=== PATIENT | female | born 2000 | race Caucasian/White ===

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

== ENCOUNTER 2018-07-14 22:19 | Emergency (ER) | payer BC ==
[2018-07-14] MEDS ORDERED: hydrOXYzine HCL TAB* 50 MG PO ONE (23:19)
--- NOTE | 2018-07-14 23:22 | ED ---
Allergic Reaction/Systemic - HPI Summary HPI Summary: 17 y/o female presents to the ED c/o diffuse pruritis starting yesterday. Benadryl no relief of pruritis. Pt is pruritic from chest down to feet diffusely. Pt contracted Coxsackievirus in May 2018 - reports similar symptoms now but diffusely. Pt also c/o sore throat, nasal congestion. Denies other PMHx. Pt is on control. - History of Current Complaint Chief Complaint: EDGeneral Hx Obtained From: Patient Hx Last Menstrual Period: 05/18/17 Timing: Constant Pain Intensity: 0 Pain Scale Used: 0-10 Numeric Location: Diffuse Aggravating Factor(s): Nothing Alleviating Factor(s): Nothing Associated Signs And Symptoms: Positive: Other: - pruritus diffusely - Allergies/Home Medications Allergies/Adverse Reactions: Allergies Allergy/AdvReac Type Severity Reaction Status Date / Time No Known Allergies Allergy Verified 05/18/17 20:27 PMH/Surg Hx/FS Hx/Imm Hx Previously Healthy: No Endocrine/Hematology History: Denies: Hx Diabetes Cardiovascular History: Denies: Hx Congestive Heart Failure Infectious Disease History: No Infectious Disease History: Denies: Traveled Outside the [place] in Last 30 Days - Family History Known Family History: Positive: None - Social History Occupation: Student Lives: Dormitory/Roommates Alcohol Use: None Hx Substance Use: No Substance Use Type: Reports: None Hx Tobacco Use: No Smoking Status (MU): Never Smoked Tobacco Review of Systems Constitutional: Negative Eyes: Negative ENT: Negative Cardiovascular: Negative Respiratory: Negative Gastrointestinal: Negative Genitourinary: Negative Musculoskeletal: Negative Positive: Other - pruritis -diffusely Neurological: Negative Psychological: Normal All Other Systems Reviewed And Are Negative: Yes Physical Exam - Summary Physical Exam Summary: Appearance: Well-appearing, Well-nourished, lying in bed comfortably Skin: Warm, dry, no obvious rash Eyes: sclera anicteric, no conjunctival pallor ENT: mucous membranes moist, pharynx appears normal Neck: Supple, nontender Respiratory: Clear to auscultation, no signs of respiratory distress Cardiovascular: Normal S1, S2. No murmurs. Normal distal pulses in tibial and radial bilaterally. Abdomen: Soft, nontender, normal active bowel sounds present Musculoskeletal: Normal, Strength/ROM Intact Neurological: A&Ox3, awake and alert, mentation is normal, speech is fluent and appropriate Psychiatric: affect is normal, does not appear anxious or depressed Triage Information Reviewed: Yes Vital Signs On Initial Exam: Initial Vitals Temp Pulse Resp BP Pulse Ox 99.4 F 91 16 136/91 97 07/14/18 22:27 18 22:27 07/14/18 22:27 07/14/18 22:27 07/14/18 22:27 Vital Signs Reviewed: Yes Diagnostics - Vital Signs Vital Signs Temp Pulse Resp BP Pulse Ox 07/14/18 22:27 99.4 F 91 16 136/91 97 - Laboratory Result Diagrams: 07/14/18 23:30 07/14/18 23:30 Lab Statement: Any lab studies that have been ordered have been reviewed, and results considered in the medical decision making process. Allergic Reaction Course/Dx - Course Assessment/Plan: 17 y/o female presents to the ED c/o diffuse pruritis starting yesterday. Pt will be d/c home. - Diagnoses Provider Diagnoses: Itchy skin Discharge - Sign-Out/Discharge Documenting (check all that apply): Patient Departure - Discharge Plan Condition: Good Disposition: HOME Prescriptions: hydrOXYzine pamoate [Vistaril] 50 mg PO Q6HR PRN #20 capsule PRN Reason: Itching Patient Education Materials: Itchy Skin (ED) Referrals: [facility] @ [Outside] - Attestation Statements Document Initiated by Scribe: Yes Documenting Scribe: Jonathan Chang Provider For Whom Scribe is Documenting (Include Credential): Son Shrestha MD Scribe Attestation: Jonathan Martínez, scribed for Son Shrestha MD on 07/15/18 at 0033.
[2018-07-14 23:46] LABS: Hematocrit 43 % (35-47); Hemoglobin 14.2 g/dl (12.0-16.0); Mean Corpuscular HGB Conc 33 g/dl (31-36); Mean Corpuscular Hemoglobin 29 pg (27-31); Mean Corpuscular Volume 86 fL (80-97); Mean Platelet Volume 7.1 um3 (7.4-10.4); Platelet Count 341 10^3/ul (150-450); Red Blood Count 4.95 10^6/ul (4.00-5.40); Red Cell Distribution Width 14 % (10.5-15); White Blood Count 11.8 10^3/ul (3.5-10.8)
[2018-07-15 00:02] LABS: EGFR Non-African American 109.6 (>60)
[2018-07-15 00:14] LABS: ABS Neutrophils 2.5 10^3/ul (1.5-7.7)
[2018-07-15 00:36] VITALS: BP 126/79
[2018-07-15 01:03] LABS: ABS Basophils 0.4 10^3/ul (0-0.2); ABS Neutrophils 2.6 10^3/ul (1.5-7.7); Monocytes % 6 % (0-7)
== END 2018-07-15 00:36 | disposition home or self-care (01) ==
LOC: ED 22:19
DX: L29.9 Pruritus, unspecified (principal)
CPT/HCPCS: 36415; 80053; 84702; 85025; 85060; 86308; 99282; A9270-GY

== ENCOUNTER → 2018-07-27 17:15 | Emergency (ER) | payer BC ==
[~2018-07-27 17:15] MED LIST: Cephalexin CAP* 500 MG PO ONE; Famotidine TAB* 20 MG PO ONE; Ursodiol CAP* 300 MG PO ONE; predniSONE TAB* 20 MG PO ONE
[2018-07-27 17:29] VITALS: BP 119/70
[2018-07-27 18:52] LABS: INR 0.85 (0.77-1.02)
[2018-07-27 19:13] LABS: EGFR Non-African American 117.4 (>60)
[2018-07-27 19:18] LABS: Hematocrit 42 % (35-47); Hemoglobin 14.2 g/dl (12.0-16.0); Mean Corpuscular HGB Conc 34 g/dl (31-36); Mean Corpuscular Hemoglobin 29 pg (27-31); Mean Corpuscular Volume 84 fL (80-97); Mean Platelet Volume 7.7 fL (7.4-10.4); Platelet Count 417 10^3/ul (150-450); Red Blood Count 4.93 10^6/ul (4.00-5.40); Red Cell Distribution Width 14 % (10.5-15); White Blood Count 7.6 10^3/ul (3.5-10.8)
[2018-07-27 19:25] LABS: ABS Basophils 0.1 10^3/ul (0-0.2); ABS Eosinophils 0 10^3/ul (0-0.6); ABS Lymphocytes 5.1 10^3/ul (1.0-4.8); ABS Monocytes 0.6 10^3/ul (0-0.8); ABS Neutrophils 2.2 10^3/ul (1.5-7.7); ABS Nucleated RBC 0 10^3/ul; Eosinophil % 0.7 % (0-6); Lymphocyte % 64.6 % (25-47); Nucleated Red Blood Cells % 0.2
[2018-07-27 19:34] LABS: ABS Basophils 0.1 10^3/ul (0-0.2); ABS Neutrophils 1.4 10^3/ul (1.5-7.7); Monocytes % 7 % (0-7)
[2018-07-27 20:25] LABS: Urine Appearance Cloudy; Urine Blood Negative (Negative); Urine Color Amber; Urine Ketones Negative (Negative); Urine Protein Negative (Negative); Urine Red Blood Cell Trace(0-2/hpf) (Absent); Urine Specific Gravity 1.013 (1.010-1.030); Urine Urobilinogen Negative (Negative); Urine White Blood Cell 1+(6-10/hpf) (Absent)
--- NOTE | 2018-07-27 21:07 | ED ---
Skin Complaint - HPI Summary HPI Summary: Generalized itchiness 2 weeks, dark foul urine, burning with urination, bruises on both legs appearing without trauma. Patient seen here 2 weeks ago for same, positive for mono with elevated LFTs.. Denies fever, LUIS, neck stiffness, body aches, bleeding disorder, cough, sore throat, CP, SOB, N/V/D, abdominal pain, change in BM. Patient states she was given Vistaril which she takes at night because it makes her so drowsy. Itching has persisted. Medical history is PCO as, Raynaud's. - History of Current Complaint Chief Complaint: EDGeneral Time Seen by Provider: 07/27/18 18:02 Stated Complaint: UNEXPLAINED BRUISING/ITCHY Hx Obtained From: Patient Hx Last Menstrual Period: 05/18/17 Onset/Duration: Started Weeks Ago Skin Exposure Onset/Duration: Weeks Ago Timing: Constant Current Severity: None Pain Intensity: 0 Pain Scale Used: 0-10 Numeric Aggravating Symptom(s): Nothing Alleviating Symptom(s): Nothing - Allergy/Home Medications Allergies/Adverse Reactions: Allergies Allergy/AdvReac Type Severity Reaction Status Date / Time No Known Allergies Allergy Verified 05/18/17 20:27 PMH/Surg Hx/FS Hx/Imm Hx Endocrine/Hematology History: Denies: Hx Diabetes Cardiovascular History: Denies: Hx Congestive Heart Failure Infectious Disease History: No Infectious Disease History: Denies: Traveled Outside the [place] in Last 30 Days - Family History Known Family History: Positive: None - Social History Alcohol Use: None Hx Substance Use: No Substance Use Type: Reports: None Hx Tobacco Use: No Smoking Status (MU): Never Smoked Tobacco Review of Systems Constitutional: Negative Eyes: Negative ENT: Negative Cardiovascular: Negative Positive: Cough Gastrointestinal: Negative Positive: dysuria Musculoskeletal: Negative Skin: Other Neurological: Negative Psychological: Normal All Other Systems Reviewed And Are Negative: Yes Physical Exam - Summary Physical Exam Summary: No rash or skin lesions noted other than irritation with patient has been scratching. Patient appearing to scratch all over her body. Bruises to bilateral thighs. Triage Information Reviewed: Yes Vital Signs On Initial Exam: Initial Vitals Temp Pulse Resp BP Pulse Ox 98.5 F 83 16 119/70 100 07/27/18 17:24 07/27/18 17:24 07/27/18 17:24 07/27/18 17:24 07/27/18 17:24 Vital Signs Reviewed: Yes Appearance: Positive: Well-Appearing Skin: Positive: Warm Head/Face: Positive: Normal Head/Face Inspection Eyes: Positive: Normal ENT: Positive: Pharyngeal erythema, Uvula midline. Negative: Tonsillar swelling , Tonsillar exudate, Trismus, Muffled voice, Hoarse voice Neck: Positive: Supple Respiratory/Lung Sounds: Positive: Clear to Auscultation Cardiovascular: Positive: Normal Abdomen Description: Positive: Nontender Musculoskeletal: Positive: Normal Neurological: Positive: Normal Psychiatric: Positive: Normal AVPU Assessment: Alert - Sunny Coma Scale Best Eye Response: 4 - Spontaneous Best Motor Response: 6 - Obeys Commands Best Verbal Response: 5 - Oriented Coma Scale Total: 15 Diagnostics - Vital Signs Vital Signs Temp Pulse Resp BP Pulse Ox 07/27/18 17:24 98.5 F 83 16 119/70 100 - Laboratory Lab Results: Lab Results 07/27/18 07/27/18 07/27/18 Range/Units 18:34 18:45 18:45 WBC 7.6 (3.5-10.8) 10^3/ul RBC 4.93 (4.00-5.40) 10^6/ul Hgb 14.2 (12.0-16.0) g/dl Hct 42 (35-47) % MCV 84 (80-97) fL MCH 29 (27-31) pg MCHC 34 (31-36) g/dl RDW 14 (10.5-15) % Plt Count 417 (150-450) 10^3/ul MPV 7.7 (7.4-10.4) fL Neut % (Auto) 26.3 L (38-83) % Lymph % (Auto) 64.6 H (25-47) % [place] % (Auto) 7.3 H (0-7) % Eos % (Auto) 0.7 (0-6) % Baso % (Auto) 1.1 (0-2) % Absolute Neuts (auto) 2.2 (1.5-7.7) 10^3/ul Absolute Lymphs (auto) 5.1 H (1.0-4.8) 10^3/ul Absolute Monos (auto) 0.6 (0-0.8) 10^3/ul Absolute Eos (auto) 0 (0-0.6) 10^3/ul Absolute Basos (auto) 0.1 (0-0.2) 10^3/ul Absolute Nucleated RBC 0 10^3/ul Immature Gran % 2 (0-9) % Neutrophils % 19 L (38-83) % Band Neutrophils % 2 (0-8) % Lymphocytes % 57 H (25-47) % Reactive Lymphs % 13 H D (0-6) % Monocytes % 7 (0-7) % Eosinophils % 1 (0-6) % Basophils % 1 (0-2) % Nucleated RBC % 0.2 Abs Neuts (Manual) 1.4 L (1.5-7.7) 10^3/ul Abs Lymphs (Manual) 4.3 (1.0-4.8) 10^3/ul Abs Monocytes (Manual) 0.5 (0-0.8) 10^3/ul Absolute Eos (Manual) 0.1 (0-0.6) 10^3/ul Abs Basophils (Manual) 0.1 (0-0.2) 10^3/ul Normal RBC Morphology Not Reportable Anisocytosis 1+ Hem Pathologist Commnt Pending INR (Anticoag Therapy) 0.85 (0.77-1.02) APTT 28.4 (26.0-36.3) seconds Sodium 137 (135-145) mmol/L Potassium 3.6 (3.5-5.0) mmol/L Chloride 104 (101-111) mmol/L Carbon Dioxide 26 (22-32) mmol/L Anion Gap 7 (2-11) mmol/L BUN 8 (6-24) mg/dL Creatinine 0.65 (0.51-0.95) mg/dL Est GFR ( Amer) 142.1 (>60) Est GFR (Non-Af Amer) 117.4 (>60) BUN/Creatinine Ratio 12.3 (8-20) Glucose 88 (70-100) mg/dL Calcium 9.5 (8.6-10.3) mg/dL Total Bilirubin 2.30 H (0.2-1.0) mg/dL AST 72 H (13-39) U/L ALT 153 H (7-52) U/L Alkaline Phosphatase 191 H (34-104) U/L C-Reactive Protein 2.28 (<8.01) mg/L Total Protein 8.2 (6.4-8.9) g/dL Albumin 3.8 (3.2-5.2) g/dL Globulin 4.4 H (2-4) g/dL Albumin/Globulin Ratio 0.9 L (1-3) TSH 4.19 (0.34-5.60) mcIU/mL Urine Color Urine Appearance Urine pH (5-9) Ur Specific [place] (1.010-1.030) Urine Protein (Negative) Urine Ketones (Negative) Urine Blood (Negative) Urine Nitrate (Negative) Urine Bilirubin (Negative) Urine Urobilinogen (Negative) Ur Leukocyte Esterase (Negative) Urine WBC (Auto) (Absent) Urine RBC (Auto) (Absent) Ur Squamous Epith Cells (Absent) Urine Bacteria (Absent) Urine Glucose (Negative) Monoscreen Positive A (Negative) 07/27/18 Range/Units 19:55 WBC (3.5-10.8) 10^3/ul RBC (4.00-5.40) 10^6/ul Hgb (12.0-16.0) g/dl Hct (35-47) % MCV (80-97) fL MCH (27-31) pg MCHC (31-36) g/dl RDW (10.5-15) % Plt Count (150-450) 10^3/ul MPV (7.4-10.4) fL Neut % (Auto) (38-83) % Lymph % (Auto) (25-47) % [place] % (Auto) (0-7) % Eos % (Auto) (0-6) % Baso % (Auto) (0-2) % Absolute Neuts (auto) (1.5-7.7) 10^3/ul Absolute Lymphs (auto) (1.0-4.8) 10^3/ul Absolute Monos (auto) (0-0.8) 10^3/ul Absolute Eos (auto) (0-0.6) 10^3/ul Absolute Basos (auto) (0-0.2) 10^3/ul Absolute Nucleated RBC 10^3/ul Immature Gran % (0-9) % Neutrophils % (38-83) % Band Neutrophils % (0-8) % Lymphocytes % (25-47) % Reactive Lymphs % (0-6) % Monocytes % (0-7) % Eosinophils % (0-6) % Basophils % (0-2) % Nucleated RBC % Abs Neuts (Manual) (1.5-7.7) 10^3/ul Abs Lymphs (Manual) (1.0-4.8) 10^3/ul Abs Monocytes (Manual) (0-0.8) 10^3/ul Absolute Eos (Manual) (0-0.6) 10^3/ul Abs Basophils (Manual) (0-0.2) 10^3/ul Normal RBC Morphology Anisocytosis Hem Pathologist Commnt INR (Anticoag Therapy) (0.77-1.02) APTT (26.0-36.3) seconds Sodium (135-145) mmol/L Potassium (3.5-5.0) mmol/L Chloride (101-111) mmol/L Carbon Dioxide (22-32) mmol/L Anion Gap (2-11) mmol/L BUN (6-24) mg/dL Creatinine (0.51-0.95) mg/dL Est GFR ( Amer) (>60) Est GFR (Non-Af Amer) (>60) BUN/Creatinine Ratio (8-20) Glucose (70-100) mg/dL Calcium (8.6-10.3) mg/dL Total Bilirubin (0.2-1.0) mg/dL AST (13-39) U/L ALT (7-52) U/L Alkaline Phosphatase (34-104) U/L C-Reactive Protein (<8.01) mg/L Total Protein (6.4-8.9) g/dL Albumin (3.2-5.2) g/dL Globulin (2-4) g/dL Albumin/Globulin Ratio (1-3) TSH (0.34-5.60) mcIU/mL Urine Color Rosie Urine Appearance Cloudy Urine pH 7.0 (5-9) Ur Specific [place] 1.013 (1.010-1.030) Urine Protein Negative (Negative) Urine Ketones Negative (Negative) Urine Blood Negative (Negative) Urine Nitrate Positive A (Negative) Urine Bilirubin Negative (Negative) Urine Urobilinogen Negative (Negative) Ur Leukocyte Esterase Trace A (Negative) Urine WBC (Auto) 1+(6-10/hpf) A (Absent) Urine RBC (Auto) Trace(0-2/hpf) (Absent) Ur Squamous Epith Cells Present A (Absent) Urine Bacteria 2+ A (Absent) Urine Glucose Negative (Negative) Monoscreen (Negative) Result Diagrams: 07/27/18 18:45 07/27/18 18:45 Lab Statement: Any lab studies that have been ordered have been reviewed, and results considered in the medical decision making process. Course/Dx - Course Course Of Treatment: Generalized itchiness 2 weeks, dark foul urine, burning with urination, bruises on both legs appearing without trauma. Patient seen here 2 weeks ago for same, positive for mono with elevated LFTs.. Denies fever , LUIS, neck stiffness, body aches, bleeding disorder, cough, sore throat, CP, SOB , N/V/D, abdominal pain, change in BM. Patient states she was given Vistaril which she takes at night because it makes her so drowsy. Itching has persisted. Medical history is PCO as, Raynaud's. Physical exam:No rash or skin lesions noted other than irritation with patient has been scratching. Patient appearing to scratch all over her body. Bruises to bilateral thighs. Vital signs within normal limits. Positive for mono. UA positive for UTI. Elevated LFTs similar or decreased from prior visit. Rx for prednisone and Pepcid for itching. Rx for ursodiol and Pepcid and prednisone do not work. Rx for Keflex for UTI. - Diagnoses Provider Diagnoses: Mononucleosis, UTI (urinary tract infection), Pruritic condition Discharge - Sign-Out/Discharge Documenting (check all that apply): Patient Departure - Discharge Plan Condition: Stable Disposition: HOME Prescriptions: Cephalexin CAP* [Keflex CAP*] 500 mg PO TID 7 Days #21 cap Famotidine TAB* [Pepcid 20 MG TAB*] 40 mg PO DAILY 8 Days #8 tab predniSONE TAB* [Deltasone 20 MG TAB*] 40 mg PO DAILY 5 Days #10 tab Ursodiol CAP* [Actigall CAP 300 MG*] 300 mg PO BID 4 Days #8 cap Patient Education Materials: Mononucleosis (ED), Urinary Tract Infection in Women (ED) Referrals: No Primary Care Phys,NOPCP [Primary Care Provider] - [facility] [Outside] Additional Instructions: Follow-up with primary care. No contact sports for at least 1 month due to concern for potential splenic rupture Return to the ED for any new or worsening symptoms - Billing Disposition and Condition Condition: STABLE Disposition: Home
== END | disposition home or self-care (01) ==
LOC: ED 17:15
DX: B27.90 Infectious mononucleosis, unspecified without complication (principal); L29.9 Pruritus, unspecified; R05 Cough; R30.0 Dysuria; N39.0 Urinary tract infection, site not specified
CPT/HCPCS: 36415; 80053; 81003; 81015; 84443; 85025; 85060; 85610; 85730; 86140; 86308; 87077; 87086; 87186; 99282; A9270-GY; J7512